=== PATIENT | female | born 1940 | race Caucasian/White ===

== ENCOUNTER 2020-10-20 15:14 | Outpatient (CLI) | payer MEDICARE, OTHER, SELFPAY ==
--- NOTE | ~2020-10-20 | XR_ITS ---
XR ankle LT min 3V DATE: 10/20/2020 16:04 INDICATION: Fall 2 days ago. Left ankle pain and swelling. TECHNIQUE: 4 views COMPARISON: 07/28/2014 left ankle FINDINGS: Moderate plantar and posterior calcaneal enthesopathy and distal Achilles tendon calcificat ion. There is soft tissue swelling of the ankle, greater laterally. No recent fracture or dislocation of the ankle or disruption of the ankle mortise is detected. No per iosteal reaction or bone destruction. IMPRESSION: Left ankle soft tissue swelling, greater laterally; no fracture or dislocation Reviewed, dictated and finalized at location B. EF WORKER
--- NOTE | ~2020-10-20 | XR_ITS ---
EXAMINATION: XR knee LT 3V DATE: 10/20/2020 16:04 INDICATION: Left knee pain. TECHNIQUE: 3 views of left knee on 4 radiographs were obtained. COMPARISON: Left knee radiographs 12/11/2014 FINDINGS: Bone alignment is normal. No fracture. There is severe osteoarthritis of medial and patello femoral compartments and moderate osteoarthritis of lateral compartment. No knee joint effusion. IMPRESSION: 1. Severe left knee osteoarthritis. Reviewed, dictated and finalized at location A. RMATION BROKER
== END 2020-10-20 15:15 | disposition home or self-care (01) ==
LOC: ANHIMG 15:25
PROVIDERS: PCP Family Medicine; Visit Provider Nurse Practitioner Family
DX: M25.572 Pain in left ankle and joints of left foot (principal); M79.89 Other specified soft tissue disorders; M17.12 Unilateral primary osteoarthritis, left knee
CPT/HCPCS: 73562; 73610

== ENCOUNTER 2021-08-10 09:54 | Outpatient (CLI) | payer MEDICARE, OTHER, SELFPAY ==
[2021-08-10 10:38] LABS: Basophils Absolute Auto 0.1 K/mm3 (0.0-0.1); Basophils Percent Auto 0.5 % (0.2-1.2); Eosinophils Absolute Auto 0.1 K/mm3 (0-0.3); Eosinophils Percent Auto 1.1 % (0-4.4); Hematocrit 42.2 % (37.0-47.0); Hemoglobin 13.1 g/dL (12.0-15.0); Immature Granulocyte Absolute 0.11 K/mm3 (0.00-0.031); Immature Granulocyte Percent A 0.9 % (0-0.5); Lymphocytes Absolute Auto 2.62 K/mm3 (0.9-3.2); Mean Corpuscular Hemoglobin 27.1 pg (26-34); Mean Corpuscular Volume 87.2 fl (80-100); Mean Platelet Volume 9.7 fl (7.4-10.4); Monocytes Absolute Auto 0.6 K/mm3 (0.1-0.6); Neutrophils Absolute Auto 8.9 K/mm3 (1.3-6.7); Neutrophils Percent Auto 71.5 % (45.5-73.1); Platelet Count Result 238 k/mm3 (150-375); Red Blood Count 4.84 M/mm3 (4.2-5.4); Red Cell Distribution Width 14.6 % (11.5-14.5); White Blood Count 12.5 K/mm3 (4.5-10.0)
[2021-08-10 10:51] LABS: Anion Gap 10 mmol/L (8-16); Blood Urea Nitrogen 17 mg/dL (7-17); Calcium 9.4 mg/dL (8.4-10.2); Carbon Dioxide 30 mmol/L (22-30); Chloride 100 mmol/L (98-107); Cholesterol 208 mg/dL (0-200); Estimated Glomerular Filt Rate 53; Glucose 199 mg/dL (65-110); HDL Direct 28 mg/dL; Potassium 4.2 mmol/L (3.4-5.0); Sodium 140 mmol/L (137-145); Triglycerides 186 mg/dL (<150)
[2021-08-10 11:01] LABS: LDL Cholesterol Direct 137 mg/dL
[2021-08-10 11:14] LABS: Hemoglobin A1C 7.9 % (<5.7)
[2021-08-10 20:15] LABS: Creatinine Urine 149.9 mg/dL
[2021-08-10 20:19] LABS: MALB Creatinine Ratio 22.5 mg/g (0-30); Microalbumin Urine Random 33.7 mg/L (0-16.7)
== END 2021-08-10 09:55 | disposition home or self-care (01) ==
PROVIDERS: PCP Family Medicine; Visit Provider Family Medicine
DX: D64.9 Anemia, unspecified (principal); E11.9 Type 2 diabetes mellitus without complications; I10 Essential (primary) hypertension; Z13.220 Encounter for screening for lipoid disorders
CPT/HCPCS: 36415; 80048; 80061; 82043; 83036; 84443; 85025

== ENCOUNTER 2021-09-15 10:22 | Outpatient (CLI) | payer MEDICARE, OTHER, SELFPAY ==
--- NOTE | ~2021-09-15 | XR_ITS ---
XR shoulder RT min 2V 09/15/2021 10:56 Indication: Right shoulder pain after fall Procedure: 4 views right shoulder Comparison: 12/20/2009 Findings: No fracture, subluxation or dislocation. There is anatomic alignment. There are mild degene rative changes of the acromioclavicular joint. No significant soft tissue abnormality. Visualized michael g parenchyma is unremarkable. Impression: 1: Mild osteoarthritis of the right acromioclavicular joint. Reviewed, dictated and finalized at location B. TURBINE MECHANIC Impression: 1: Mild osteoarthritis of the right acromioclavicular joint.
== END 2021-09-15 10:23 | disposition home or self-care (01) ==
PROVIDERS: PCP Family Medicine; Visit Provider Nurse Practitioner Family
DX: M19.011 Primary osteoarthritis, right shoulder (principal)
CPT/HCPCS: 73030

== ENCOUNTER 2021-11-22 09:01 | Outpatient (CLI) | payer MEDICARE, OTHER, SELFPAY ==
--- NOTE | ~2021-11-22 | MR_ITS ---
EXAMINATION: MR shoulder RT wo con DATE: 11/22/2021 10:09 INDICATION: Right shoulder pain TECHNIQUE: Magnetic resonance imaging (MRI) of the affected shoulder was performed without intravenou s contrast. Sequences included axial PD-weighted FS FSE, coronal oblique PD-weighted FS FSE, coronal oblique T2-weighted FS FSE, sagittal PD-weighted FS FSE, and sagittal T1-weighted SE. COMPARISON: None. FINDINGS: Coracoacromial arch: The acromion undersurface is minimally curved in morphology (type I-II) with prominent inferiorly dir ected anterior subacromial spur at the acromial attachment of the otherwise normal coracoacromial lig ament. Mild acromioclavicular osteoarthritis. Rotator cuff: Moderate to severe tendinopathy and infraspinatus tendinopathy. Full-thickness tear involving the ent sj supraspinatus and conjoined portion of the supraspinatus and infraspinatus tendons. The tear cont inues posteriorly as a severe articular sided tear involving the majority of the thickness of the mor e posterior infraspinatus tendon. The supraspinatus tear margin is retracted approximately 2 cm from the superior facet footplate. The teres minor tendon is normal. Mild to moderate subscapularis tendin opathy without discrete tear. Normal signal the rotator cuff musculature with no asymmetric muscular atrophy. Biceps tendon, glenoid labrum and glenohumeral cartilage: The long head biceps tendon is not visualized and likely torn and distally retracted below the level of the intertubercular groove. Glenohumeral osteoarthritis with diffuse partial thickness cartilage l oss at the glenoid and at the inferomedial aspect of the humeral head with smooth chondral surface an d without degenerative subchondral changes. The labrum at the posterior to posterior inferior glenoid has been largely replaced by small marginal osteophytes. No evident labral tear. Fluid: Small glenohumeral joint effusion with proportional extension of fluid into the long head biceps tend on sheath and subacromial/subdeltoid bursa, the latter to the full-thickness rotator cuff tear defect . No loose osteochondral bodies. Bones: Mild cephalad subluxation of the humeral head with respect to the glenoid with slight narrowing of th e subacromial space which measures approximately 4 mm between the margins of the humeral head and und ersurface of the acromion. IMPRESSION: 1. Complete full-thickness tear of the distal supraspinatus tendon with transition to a severe articu lar sided tear of the more posterior infraspinatus tendon. 2. Complete tear/avulsion of the the glenoid attachment of the long head biceps tendon which is retra cted distally below the intertubercular groove. 3. Mild glenohumeral and acromioclavicular osteoarthritis. 4. Mild to moderate subscapularis tendinopathy without discrete tear. Reviewed, dictated and finalized at location A. RAL PASSENGER AGENT IMPRESSION: 1. Complete full-thickness tear of the distal supraspinatus tendon with transit ion to a severe articular sided tear of the more posterior infraspinatus tendon . 2. Complete tear/avulsion of the the glenoid attachment of the long head biceps tendon which is retracted distally below the intertubercular groove. 3. Mild glenohumeral and acromioclavicular osteoarthritis. 4. Mild to moderate subscapularis tendinopathy without discrete tear.
== END 2021-11-22 09:02 | disposition home or self-care (01) ==
LOC: ANHIMG 09:05
PROVIDERS: PCP Family Medicine; Visit Provider Physician Assistant Medical
DX: M19.011 Primary osteoarthritis, right shoulder (principal)
CPT/HCPCS: 73221

== ENCOUNTER 2022-03-16 07:51 | Outpatient (CLI) | payer MEDICARE, OTHER, SELFPAY ==
--- NOTE | 2022-03-30 18:49 | WPDSLEEPSTUD ---
Sleep Study Date of Study: 03/16/22 Ordering Provider: Sidney Olguin MD Interpreting Physician: Nadia Boo MD Sleep Study Type: Split Polysomnogram Height: 1.57 m Weight: 113.398 kg Body Mass Index: 45.7 Neck Circumference (inches): 16.5 [place]: 14 Reason for Sleep Study Excessive daytime sleepiness Sleep History Daisy Layne is an 82-year-old female who is tired all the time. She constantly snores and her snoring is constantly loud enough that others complain about it. She does not have trouble sleeping with a cold or wake up gasping for breath at night. She does not have breathing problems at night observed by others. She does not sweat excessively at night or notice her heart pounding or beating irregularly at night. She occasionally falls asleep during the day and occasionally falls asleep involuntarily she does not fall asleep while driving. She does not have loss of muscle tone with strong emotion. She does not have daytime difficulties due to excessive sleepiness. She does not feel paralyzed on waking or falling asleep. She does not feel afraid to go to sleep. She does not have nightmares. She rarely remembers her dreams. She does not have racing thoughts. She does not feel sad or depressed. She occasionally has anxiety. She does not have muscular tension. She does not notice parts of her body jerking and she does not kick at night. She does not have crawling and aching feelings in her legs. She rarely has any kind of leg pain at night. She rarely has morning jaw pain. She does not grind her teeth during sleep. She constantly is bothered by pain during the day, constantly awakened by pain at night, constantly wakes up feeling stiff in the morning with sore achy muscles and pain in the neck and spine. She has fatigue, headaches and palpitations. Normal bedtime is between 9:00 p.m. and 10:00 p.m., taking 20 minutes to fall asleep, typically waking 3 times at night to go to the bathroom. The 1st event happens 3 hours after going to sleep. On average she stays awake for 10 minutes when these events occur. She wakes the morning between 8:00 a.m. and 9:00 a.m.. She may feel refreshed after a short nap. She is not refreshed on waking. Habits: The patient consumes caffeine. 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 Chronic fatigue Chronic gastric ulcer with hemorrhage Chronic GERD Essential (primary) hypertension Hypertension Knee osteoarthritis Microalbuminuria Nasal drainage Right rotator cuff tear Right shoulder pain Spasm of thoracic back muscle Spasm of thoracic back muscle Type 2 diabetes mellitus without complications Surgical History Surgical History History of appendectomy History of cataract extraction History of hysterectomy History of knee replacement Family History Family History Mother Family history of malignant neoplasm of stomach Father Family history of coronary artery disease Hypertension Sibling Heart disease Hypertension Other Family history of cardiovascular disease Social History Social History Second hand tobacco smoke exposure: No Alcohol intake: former Substance use: never Substance use type: does not use Additional occupation/education comments: [employer] Gender identity (if verbalized by the patient): Female Medications Home Medications Medication Instructions Recorded Confirmed Type atenolol 100 mg tablet 100 mg PO DAILY #90 tabs 11/11/19 02/21/22 Rx citalopram 40 mg tablet 40 mg PO DAILY #90 tabs 08/01/21 02/21/22 Rx diazepam 10 mg tablet 10 mg PO
[2022-04-04 21:23] VITALS: BMI 45.7
== END 2022-03-17 06:14 | disposition home or self-care (01) ==
LOC: ANHCSM 08:16
PROVIDERS: PCP Family Medicine; Visit Provider Family Medicine
DX: G47.33 Obstructive sleep apnea (adult) (pediatric) (principal)
CPT/HCPCS: 95811

== ENCOUNTER 2022-05-31 14:05 | Outpatient (CLI) | payer MEDICARE, OTHER, SELFPAY ==
[2022-05-31 14:26] LABS: Hematocrit 39.3 % (37.0-47.0); Hemoglobin 12.4 g/dL (12.0-15.0); Mean Corpuscular HGB Conc 31.6 g/dl (32-36); Mean Corpuscular Hemoglobin 27.3 pg (26-34); Mean Corpuscular Volume 86.4 fl (80-100); Mean Platelet Volume 9.9 fl (7.4-10.4); Platelet Count Result 232 k/mm3 (150-375); Red Blood Count 4.55 M/mm3 (4.2-5.4); Red Cell Distribution Width 14.1 % (11.5-14.5); White Blood Count 12.4 K/mm3 (4.5-10.0)
[2022-05-31 14:40] LABS: Anion Gap 9 mmol/L (8-16); Blood Urea Nitrogen 24 mg/dL (7-17); Calcium 9.4 mg/dL (8.4-10.2); Carbon Dioxide 31 mmol/L (22-30); Chloride 96 mmol/L (98-107); Estimated Glomerular Filt Rate 48; Glucose 156 mg/dL (65-110); Sodium 136 mmol/L (137-145)
[2022-05-31 17:47] LABS: Iron 59 ug/dL (37-170)
[2022-05-31 17:57] LABS: Percent Iron Saturation 17 % (20-50)
== END 2022-05-31 14:06 | disposition home or self-care (01) ==
LOC: ANHLAB 14:08
PROVIDERS: PCP Family Medicine; Visit Provider Family Medicine
DX: D64.9 Anemia, unspecified (principal)
CPT/HCPCS: 36415; 80048; 82728; 83540; 83550; 85027

== ENCOUNTER 2022-09-18 15:28 | Outpatient (CLI) | payer MEDICARE, OTHER, SELFPAY ==
--- NOTE | ~2022-09-18 | US_ITS ---
EXAMINATION:US venous doppler LE BI INDICATION:Soft tissue disorder. Leg swelling. TECHNIQUE: Multiple grayscale, color flow and Doppler images of the right and left lower extremity de ep venous systems were obtained and reviewed. COMPARISON:No prior studies for comparison. FINDINGS: The common femoral, superficial femoral and popliteal veins demonstrate normal respiratory variation, augmentation and compressibility. Color flow is also seen within the posterior tibial, pe roneal, greater saphenous and profunda veins. IMPRESSION: 1: No lower extremity deep venous thrombosis. Reviewed, dictated and finalized at location A. ER PORTABLE MACHINE
== END 2022-09-18 15:29 | disposition home or self-care (01) ==
PROVIDERS: PCP Family Medicine; Visit Provider Family Medicine
DX: M79.89 Other specified soft tissue disorders (principal)
CPT/HCPCS: 93970

== ENCOUNTER 2022-12-21 09:30 | Outpatient (CLI) | payer MEDICARE, OTHER, SELFPAY ==
--- NOTE | 2022-12-21 11:30 | NEURO_ITS ---
Impression: # Complains of pain and inability to stand. Status post multiple right knew surgeries # Right peroneal severe neuropathy. # Needle/EMG abnormal with decreased motor unit potentials in right Quad as well. # No acute neurogenic changes noted. # Clinical correlation recommended. Motor Nerve Conduction Lower Extremities Peroneal Nerve Conduction Velocity (m/sec) Terminal Latency (msec) Response Voltage(mV) Popliteal space-Ankle Ankle Extensor Dig Brevis Popliteal space Ankle Right NR NR NR NR Left 47 4.5 1 1 Tibial Nerve Conduction Velocity (m/sec) Terminal Latency (msec) Response Voltage(mV) Popliteal space-Ankle Ankle-Extensor Dig Brevis Popliteal space Ankle Right 43 5.1 .3 1 Left 48 5.2 1 1 F-waves Peroneal Nerve (ms) Tibial Nerve (ms) Right Dispersed Response 59.5 Left 59.5 58.4 Sensory Nerve Conduction Lower Extremities Sural Nerve Stimulation Terminal Latency (msec) Ankle Response Voltage (uV) Ankle Response Velocity (m/sec) Right NR NR NR Left 3.3 4 48 Superficial Peroneal Nerve Stimulation Terminal Latency (msec) Ankle Response Voltage (uV) Ankle Response Velocity (m/sec) Right NR NR NR Left 3.6 7 44 Left Right Muscles Examined Fibrillation Fasciculation Scarcity Voltage Duration Left Right Left Right Left Right Left Right Left Right X X Ant Tibialis Reduced Decreased >12ms X X Gastroc X X Fibularis Long Reduced Decreased >12ms X X Flex Dig Long X X Ext Dig Brev Reduced Decreased >12ms Abd Hallucis X X Quadriceps Reduced Decreased >12ms Paraspinals MTDD
== END 2022-12-21 09:31 | disposition home or self-care (01) ==
PROVIDERS: PCP Family Medicine; Visit Provider Family Medicine
DX: M79.669 Pain in unspecified lower leg (principal); G62.89 Other specified polyneuropathies
CPT/HCPCS: 95886; 95910

== ENCOUNTER 2023-01-30 15:32 | Outpatient (CLI) | payer MEDICARE, OTHER, SELFPAY ==
--- NOTE | ~2023-01-30 | XR_ITS ---
XR knee LT min 4V DATE: 01/30/2023 16:07 INDICATION: Unilateral primary osteoarthritis of left knee TECHNIQUE: 4 views COMPARISON: None FINDINGS: There is tricompartment osteophytosis, particularly severe at the patellofemoral compartmen t with prominent periarticular spurring and joint space narrowing. There is prominent joint space alejo rowing ([id number]) and moderate periarticular spurring at the medial compartment. No fracture or dislocation or joint effusion, periosteal reaction or bone destruction, radiopaque int ra-articular loose body or, calcinosis is noted. IMPRESSION: Severe patellofemoral and medial compartment osteoarthritis Mild lateral compartment osteoarthritis Reviewed, dictated and finalized at location L.
== END 2023-01-30 15:33 | disposition home or self-care (01) ==
PROVIDERS: PCP Family Medicine; Visit Provider Family Medicine
DX: M17.12 Unilateral primary osteoarthritis, left knee (principal)
CPT/HCPCS: 73564

== ENCOUNTER 2023-08-10 09:54 | Outpatient (CLI) | payer MEDICARE, OTHER, SELFPAY ==
[2023-08-10 10:39] LABS: Basophils Absolute Auto 0.1 K/mm3 (0.0-0.1); Basophils Percent Auto 0.6 % (0.2-1.2); Eosinophils Absolute Auto 0.1 K/mm3 (0-0.3); Eosinophils Percent Auto 0.9 % (0-4.4); Hematocrit 43.2 % (37.0-47.0); Hemoglobin 13.4 g/dL (12.0-15.0); Immature Granulocyte Percent A 0.9 % (0-0.5); Lymphocytes Absolute Auto 2.78 K/mm3 (0.9-3.2); Lymphocytes Percent Auto 24.8 % (18.3-44.2); Mean Corpuscular Volume 90.4 fl (80-100); Mean Platelet Volume 10.2 fl (7.4-10.4); Monocytes Absolute Auto 0.5 K/mm3 (0.1-0.6); Monocytes Percent Auto 4.5 % (2.6-8.5); Neutrophils Absolute Auto 7.7 K/mm3 (1.3-6.7); Neutrophils Percent Auto 68.3 % (45.5-73.1); Platelet Count Result 252 k/mm3 (150-375); Red Blood Count 4.78 M/mm3 (4.2-5.4); Red Cell Distribution Width 14.6 % (11.5-14.5); White Blood Count 11.2 K/mm3 (4.5-10.0)
[2023-08-10 10:51] LABS: Anion Gap 8 mmol/L (8-16); Blood Urea Nitrogen 19 mg/dL (7-17); Calcium 9.6 mg/dL (8.4-10.2); Carbon Dioxide 29 mmol/L (22-30); Chloride 102 mmol/L (98-107); Estimated Glomerular Filt Rate 60; Glucose 173 mg/dL (65-110); Potassium 4.5 mmol/L (3.4-5.0); Sodium 139 mmol/L (137-145)
[2023-08-10 10:56] LABS: Iron 65 ug/dL (37-170)
[2023-08-10 11:07] LABS: Percent Iron Saturation 19 % (20-50)
== END 2023-08-10 09:55 | disposition home or self-care (01) ==
LOC: ANHLAB 09:56
PROVIDERS: PCP Family Medicine; Visit Provider Family Medicine
DX: D64.9 Anemia, unspecified (principal); I10 Essential (primary) hypertension
CPT/HCPCS: 36415; 80048; 82607; 83540; 83550; 84443; 85025

== ENCOUNTER 2024-02-13 10:50 | Outpatient (CLI) | payer MEDICARE, OTHER, SELFPAY | END 2024-02-13 10:51 | disposition home or self-care (01) | LOC: ANHAUDASC 10:51 | PROVIDERS: PCP Family Medicine; Visit Provider Otolaryngology | DX: H93.12 Tinnitus, left ear (principal); H90.42 Sensorineural hearing loss, unilateral, left ear, with unrestricted hearing on the contralateral side; H90.71 Mixed conductive and sensorineural hearing loss, unilateral, right ear, with unrestricted hearing on the contralateral side | CPT/HCPCS: 92557; 92567 ==

== ENCOUNTER 2024-04-03 10:45 | Outpatient (CLI) | payer MEDICARE, OTHER, SELFPAY ==
--- NOTE | ~2024-04-03 | XR_ITS ---
XR knee RT min 4V Ordering provider: ALMAZ Tyson History: . M25.569 - PAIN, FALL X 2 WKS . Comparison: December 06, 2014 FINDINGS: BONES: No acute fracture or dislocation. Soft tissue ossifications seen medially and laterally. JOINT SPACES: Total knee arthroplasty. SOFT TISSUES: Normal. IMPRESSION: No acute osseous abnormality right knee. Total knee arthroplasty. Reviewed, dictated and finalized at location A.
== END 2024-04-03 10:46 | disposition home or self-care (01) ==
PROVIDERS: PCP Family Medicine; Visit Provider Nurse Practitioner Family
DX: M25.561 Pain in right knee (principal)
CPT/HCPCS: 73564

== ENCOUNTER 2024-04-15 12:37 | Outpatient (CLI) | payer MEDICARE, OTHER, SELFPAY ==
[2024-04-15 13:23] LABS: Hematocrit 37.9 % (37.0-47.0); Hemoglobin 11.9 g/dL (12.0-15.0); Mean Corpuscular HGB Conc 31.4 g/dl (32-36); Mean Corpuscular Hemoglobin 28.1 pg (26-34); Mean Corpuscular Volume 89.4 fl (80-100); Mean Platelet Volume 10.3 fl (7.4-10.4); Platelet Count Result 240 k/mm3 (150-375); Red Blood Count 4.24 M/mm3 (4.2-5.4); White Blood Count 9.1 K/mm3 (4.5-10.0)
[2024-04-15 13:38] LABS: Hemoglobin A1C 7.2 % (<5.7)
[2024-04-15 13:39] LABS: Creatinine Urine 105.3 mg/dL
[2024-04-15 13:46] LABS: Microalbumin Urine Random 114.8 mg/L (0-16.7)
[2024-04-15 13:57] LABS: Iron 60 ug/dL (37-170)
[2024-04-15 14:03] LABS: Alanine Aminotransferase 15 U/L (6-35); Albumin Level 4.2 g/dL (3.5-5.1); Alkaline Phosphatase 87 U/L (38-126); Anion Gap 5 mmol/L (4-12); Aspartate Amino Transferase 21 U/L (14-36); Blood Urea Nitrogen 19 mg/dL (7-17); Calcium 9.3 mg/dL (8.4-10.2); Carbon Dioxide 32 mmol/L (22-30); Chloride 102 mmol/L (98-107); Cholesterol 190 mg/dL (0-200); Estimated Glomerular Filt Rate 53; Glucose 152 mg/dL (65-110); HDL Direct 28 mg/dL; Potassium 4.5 mmol/L (3.4-5.0); Sodium 139 mmol/L (137-145); Triglycerides 197 mg/dL (<150)
[2024-04-15 14:12] LABS: Percent Iron Saturation 18 % (20-50)
[2024-04-15 14:15] LABS: LDL Cholesterol Direct 129 mg/dL
== END 2024-04-15 12:38 | disposition home or self-care (01) ==
PROVIDERS: PCP Family Medicine; Visit Provider Family Medicine
DX: D64.9 Anemia, unspecified (principal); I10 Essential (primary) hypertension; R80.9 Proteinuria, unspecified; K21.9 Gastro-esophageal reflux disease without esophagitis; E11.9 Type 2 diabetes mellitus without complications; Z13.220 Encounter for screening for lipoid disorders
CPT/HCPCS: 36415; 80048; 80061; 80076; 82043; 82607; 82728; 83036; 83540; 83550; 84443; 85027

== ENCOUNTER 2024-05-30 12:00 | Outpatient (CLI) | payer MEDICARE, OTHER, SELFPAY ==
--- NOTE | ~2024-05-30 | MR_ITS ---
EXAMINATION: MR lumbar spine wo con DATE: 05/30/2024 13:48 INDICATION: Right foot drop TECHNIQUE: Magnetic resonance imaging (MRI) of the lumbar spine was performed without intravenous con trast. Sequences included sagittal T2-weighted FSE, sagittal T2-weighted FS FSE, sagittal T1-weighted FSE, and axial T2-weighted FSE. COMPARISON: 12/05/2009 FINDINGS: Interval progression of now 20 degrees lumbar dextroscoliosis. Sagittal alignment is normal. Vertebra l body heights are normal. There are multiple T1 hyperintense hemangiomas the largest partially visua lized at T9 with additional hemangiomas at T12-L4. Marrow signal is otherwise unremarkable. Mild to m oderate left-sided predominant disc height loss at L2-L3. Mild disc height loss at T9-T10 through T11 -T12 and with left-sided predominance at L1-L2, L2-L3 and L3-L4. Mild right-sided predominant disc he ight loss at L4-L5. The conus medullaris terminates at L1-L2. There is normal signal in the caudal sp inal cord. Paravertebral soft tissues are unremarkable. The following disc levels are specifically di scussed: T12-L1: Disc is minimally bulging. There is mild right facet joint osteoarthritis. There is no neural foraminal stenosis. There is no central canal stenosis. L1-L2: Disc is mildly bulging. There is mild right and mild to moderate left facet joint osteoarthrit is. There is mild left neural foraminal stenosis. There is mild central canal stenosis. L2-L3: Disc is bulging. There is hypertrophy of the ligamentum flavum. There is mild right and modera te left facet joint osteoarthritis. There is mild to moderate right and moderate left neural foramina l stenosis. There is mild to moderate central canal stenosis. L3-L4: Disc is bulging with annular fissure. There is hypertrophy of the ligamentum flavum. There is mild to moderate right and moderate left facet joint osteoarthritis. There is moderate bilateral neur al foraminal stenosis. There is mild central canal stenosis including of the left and right lateral r ecesses. L4-L5: Disc is bulging with annular fissure. There is hypertrophy of the ligamentum flavum. There is severe bilateral facet joint osteoarthritis. There is moderate left and moderate to severe right justice ral foraminal stenosis. There is mild to moderate central canal stenosis. L5-S1: Disc is minimally bulging. There is moderate left and severe right facet joint osteoarthritis. There is mild bilateral neural foraminal stenosis. There is no central canal stenosis. IMPRESSION: 1. Interval increase in now 20 degrees lumbar dextro scoliosis with mild progression of still moderat e lumbar spondylosis. Reviewed, dictated and finalized at location A. IMPRESSION: 1. Interval increase in now 20 degrees lumbar dextro scoliosis with mild progre ssion of still moderate lumbar spondylosis.
--- NOTE | ~2024-05-30 | MR_ITS ---
EXAMINATION: MR pelvis wo con DATE: 05/30/2024 13:48 INDICATION: Right foot drop TECHNIQUE: Magnetic resonance imaging (MRI) of the pelvis was performed without intravenous contrast. Sequences included axial, sagittal and coronal T1-weighted FSE and T2-weighted FS FSE. COMPARISON: None. FINDINGS: Moderate lumbar spondylosis with T1 hyperintense hemangiomas at L3 and L4. Marrow signal is otherwise unremarkable. Mild bilateral hip and sacroiliac osteoarthritis. No fracture or pathologic marrow rep lacing process. Physiologic amount fluid at the bilateral hip joints. No free fluid in the pelvis or other abnormal fluid collections. There are multiple sigmoid diverticula without adjacent from trace stranding to suggest diverticulitis. Bowels are unremarkable. The uterus is not identified and has kun sage been surgically resected. The lumbosacral plexus and visualized portion of the bilateral proxima l sciatic nerves appear normal with no evident impinging lesions. No asymmetric muscle atrophy or abn ormal signal in the musculature of the lower abdomen, pelvis and upper thighs. No pathologically enla rged pelvic or inguinal lymphadenopathy. IMPRESSION: 1. Moderate lumbar spondylosis. See separate lumbar spine MR report for further detail. 2. Unremarkable lumbosacral plexus and proximal sciatic nerves on both the left and right. 3. Sigmoid diverticulosis. Reviewed, dictated and finalized at location A.
--- NOTE | ~2024-05-30 | MR_ITS ---
EXAMINATION: MR lower leg RT wo con DATE: 05/30/2024 13:48 INDICATION: Lesion of the lateral popliteal nerve of the right lower limb TECHNIQUE: Magnetic resonance imaging (MRI) of the right lower leg was performed without intravenous contrast. Sequences included axial, sagittal and coronal T1-weighted FSE and fluid sensitive FSE STIR . COMPARISON: Right knee radiographs dated 04/03/2024 FINDINGS: There is a revision right total knee arthroplasty with longstem femoral and tibial components. This r esults in significant metallic magnetic field artifact about the right knee which obscures portions o f the popliteal fossa. There is diffuse normal bone marrow signal with no reactive edema, fracture or pathologic marrow replacing process. The visualized portions of the tibial common peroneal nerves ar e normal in caliber with no impinging mass or other impinging lesions along the course of either nerv e. There is diffuse subcutaneous edema throughout both lower legs, right more prominent than left. Th ere is relatively symmetric mild fatty mild throughout the in the bilateral calves as well as mild in creased fluid signal in the in the bilateral gastrocnemius muscles and in the distal peroneus longus and brevis muscles. Visualized portion of the tendons appear normal. IMPRESSION: 1. Visualized portions of the tibial and common peroneal nerves appear normal with no impinging sivan s or lesions. Evaluation moderately limited primarily of the tibial nerve by magnetic field artifact related to the right total knee arthroplasty. Reviewed, dictated and finalized at location A. IMPRESSION: 1. Visualized portions of the tibial and common peroneal nerves appear normal w ith no impinging masses or lesions. Evaluation moderately limited primarily of the tibial nerve by magnetic field artifact related to the right total knee art hroplasty.
== END 2024-05-30 12:01 | disposition home or self-care (01) ==
LOC: ANHIMG 12:02
PROVIDERS: PCP Family Medicine; Visit Provider Student in an Organized Health Care Education/Training Program
DX: G57.31 Lesion of lateral popliteal nerve, right lower limb (principal); M21.371 Foot drop, right foot; K57.30 Diverticulosis of large intestine without perforation or abscess without bleeding; M47.816 Spondylosis without myelopathy or radiculopathy, lumbar region; M41.9 Scoliosis, unspecified
CPT/HCPCS: 72148; 72195; 73718

== ENCOUNTER 2025-05-13 10:18 | Outpatient (CLI) | payer MEDICARE, OTHER, SELFPAY ==
--- OUTSIDE RECORDS SUMMARY | 2025-05-13 10:45 | XMS_ITS | Clinical Summary ---
Author Organization [facility] Address [address] [place] [phone] Phone Care Team Providers Care Final Assembly And Packing Supervisor Name Role Phone Sidney Olguin MD Primary Care Provider [phone] Allergies Active Allergy Reactions Criticality Noted Date Comments Povidone-Iodine Other (See Comments) 06/20/2023 Bad reaction Medications VALACYCLOVIR HCL (VALTREX ORAL) Take by mouth. As needed Active fluticasone propionate (FLONASE) 50 mcg/spray [place], Suspension nasal inhaler Administer 2 Sprays in each nostril daily. Active diazepam (VALIUM) 10 mg Oral tabletIndicatio ns:Depression with anxiety Take 1 Tab by mouth every 8 hours as needed for Anxiety. 90 Tab 0 3 Active losartan-hydroc hlorothiazide (HYZAAR) 100-12.5 mg tablet Take 1 Tablet by mouth daily. Active citalopram (CeleXA) 40 mg tablet 40 mg daily. 4 7 Active aspirin (ECOTRIN EC) 81 mg Tablet, Delayed Release (E.C.) Take 81 mg by mouth daily. Taking ever other day Active omeprazole (PriLOSEC) 20 mg Capsule, Delayed Release(E.C.) Take 20 mg by mouth daily. Active acetaminophen (TYLENOL ARTHRITIS) 650 mg Extended Release tablet Take 650 mg by mouth every 6 hours as needed for Pain. Active gabapentin (NEURONTIN) 300 mg capsule Take 300 mg by mouth daily at bedtime. Active atenoloL (TENORMIN) 50 mg tablet TAKE 1 TABLET(50 MG) BY MOUTH DAILY 90 Tablet 3 4 Active Active Problems Patient Care Coordination No te Formatting of this note migh t be different from the original. Board Member: Dr. Josh Win ( [facility] ) Josh Win MD- [facility] ( [facility]) Problem Noted Date Diagnosed Date SVT (supraventricular tachycardia) 05/05/2012 Hypertension Palpitations Overview (01/19/2012): Diagnosed with SVT in the past Allergic rhinitis Depression with anxiety Overview (01/19/2012): On wellbutrin and paxil, while caring for mother several years ago. On paxil now, but questionable if its needed. Encounters Date Type Department Care Team Description 04/29/2025 External Device Data [facility] ABSTRACTION Provider, Abstract 04/29/2025 External Device Data [facility] ABSTRACTION Provider, Abstract 04/29/2025 External Device Data [facility] ABSTRACTION Provider, Abstract 04/28/2025 External Device Data [facility] ABSTRACTION Provider, Abstract 04/01/2025 External Device Data [facility] ABSTRACTION Provider, Abstract 03/31/2025 External Device Data STL ABSTRACTION Provider, Abstract 03/05/2025 External Device Data [facility] ABSTRACTION Provider, Abstract 03/03/2025 External Device Data STL ABSTRACTION Provider, Abstract from Last 3 Months Immunizations Immunization Administration Dates Next Due Influenza Seasonal Unspecified Formulation IM Zoster Vaccine Live SQ 08/15/2010 Family History Medical History Relation Name Comments Heart Disease Father Heart Surgery Father Cancer Other Stomach Relation Name Status Comments Father (Age 61) Mother (Age 91) age relate d Other Social History Tobacco Use Types Packs/Day Years Used Date Smoking Tobacco: Never Smokeless Tobacco: Never Tobacco Cessation:Counseling Given: Not Answered Alcohol Use Standard Drinks/Week Comments Yes 0 (1 standard drink = 0.6 oz pur e alcohol) Social Comments No Sex and Gender Information Value Date Recorded Sex Assigned at Not on file 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 Gender Identity Not on file Sexual Orientation Not on file 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 on file Not on file Not on file Last Filed Vital Signs Vital Sign Reading Time Taken Comments Blood Pressure 140/72 06/26/2024 9:51 AM CDT Pulse 79 06/26/2024 9:51 AM CDT Temperature 36.3 C (97.3 F) 05/27/2020 1:19 PM CDT Respiratory Rate - - Oxygen Saturation 91% 06/26/2024 9:51 AM CDT Inhaled Oxygen Concentration - - Weight 121.1 kg (267 lb) 06/26/2024 9:51 AM CDT Height 154.9 cm (5' 1) 06/26/2024 9:51 AM CDT Body Mass Index 50.45 06/26/2024 9:51 AM CDT Plan of Treatment Upcoming Encounters Date Type Department Care Team (Late st Contact Info) Description 07/02/2025 9:00 AM CDT Office Visit [facility] - [facility] [address] [facility] [address] [place] [address] Josh Win MD [address] [facility] [address] [place] [address] Health Maintenance Due Date Last Done Comments DTAP/TDAP/TD VACCINES (1 - Tdap) 1959 PNEUMOCOCCAL VACCINE 50+ YEA RS (1 of 1 - PCV) 02/09/1992 ZOSTER VACCINE (2 of 3) 10/10/2010 08/15/2010 OSTEOPOROSIS SCREENING 07/15/2014 07/15/2009 RSV VACCINE (60+ or ) (1 - 1-dose 75+ series) 2017 INFLUENZA VACCINE (#1) 2025 07/15/2012 COLORECTAL SCREENING Discontinued 06/12/2018, 10/15/19 05 Colorectal Cancer Screening Discontinued FIT-DNA Q 3 years Discontinued FIT/FOBT Q 1 year Discontinued Flex Sig/CT Colonography Q 5 years Discontinued Insurance MEDICARE PART A AND B [employer] [place] [employer] Care Teams Final Assembly And Packing Supervisor Relationship Specialty Start Date End Date Sidney Olguin MD [address] [place] [address] PCP - General Family Practice 09/17/14
--- OUTSIDE RECORDS SUMMARY | 2025-05-13 10:45 | XMS_ITS | Referral Summary ---
Author Organization [facility] Address [address] [place] [id number] Care Team Providers Care Access Nurse Name Role Phone Sidney Olguin MD Primary Care Provider [phone] Allergies Active Allergy Reactions Criticality Noted Date Comments Iodine Rash Medium 04/25/2019 Medications omeprazole (PriLOSEC) 40 mg capsule Take 40 mg by mouth daily Active diazePAM (VALIUM) 10 mg tablet Take 10 mg by mouth every 6 (six) hours as needed for anxiety Active FLUTICASONE FUROATE NASL Administer into affected nostril(s) Active citalopram (CeleXA) 40 mg tablet Take 40 mg by mouth daily Active atenolol (TENORMIN) 50 mg tablet Take 50 mg by mouth daily Active losartan-hydroC HLOROthiazide (HYZAAR) 100-12.5 mg per tablet Take 1 tablet by mouth daily Active Active Problems No known active problems Social History Tobacco Use Types Packs/Day Years Used Date Smoking Tobacco: Never Smokeless Tobacco: Never Alcohol Use Standard Drinks/Week Comments Never 0 (1 standard drink = 0.6 oz pur e alcohol) AUDIT-C Answer Date Recorded Frequency of Alcohol Consumption Never 04/25/2019 Average Number of Drinks Not on file Frequency of Binge Drinking Not on file 04/14 Personal Safety Answer Date Recorded Getting School Help Needed Not on file 12/14 Comments Unknown Sex and Gender Information Value Date Recorded Sex Assigned at Not on file Legal Sex Female 1:34 PM CDT Gender Identity Not on file Sexual Orientation Not on file Last Filed Vital Signs Vital Sign Reading Time Taken Comments Blood Pressure - - Pulse - - Temperature - - Respiratory Rate - - Oxygen Saturation - - Inhaled Oxygen Concentration - - Weight 120.7 kg (266 lb 0.1 oz) 08/08/2017 2:03 PM CDT Height 157.5 cm (5' 2) 08/08/2017 2:03 PM CDT Body Mass Index 48.65 08/08/2017 2:03 PM CDT Plan of Treatment Not on file Insurance MEDICARE [facility] MEDICARE [facility] [place] [address] Care Teams Access Nurse Relationship Specialty Start Date End Date Sidney Olguin MD PCP - General 05/22/17
--- OUTSIDE RECORDS SUMMARY | 2025-05-13 10:45 | XMS_ITS | Clinical Summary ---
Author Organization [facility] Address [address] [place] [phone] Care Team Providers Care Undertaker Helper Name Role Phone Sidney Olguin MD Primary Care Provider [phone] Allergies Active Allergy Reactions Criticality Noted Date [...] Active Active Problems No known active problems Surgical History Surgery Date Site/Laterality Comments KNEE SURGERY Medical History Medical History Date Comments Hypertension Anxiety Family History Medical History Relation Name Comments Heart disease Other 1 Family history of cardiac disorder - (Added by TW Conv) Hypertension Other 2 Family history of hypertension - (Added by TW Conv) Cancer Other 3 Family history of malignant neoplasm - (Added by TW Conv) Relation Name Status Comments Other 1 Other 2 Other 3 Social History Tobacco Use Types Packs/Day Years Used Date Smoking Tobacco: Never Smokeless Tobacco: Never Alcohol Use Standard Drinks/Week Comments Never 0 (1 standard drink = 0.6 oz pur e alcohol) AUDIT-C Answer Date Recorded Frequency of Alcohol Consumption Never 04/25/2019 Average Number of Drinks Not on file 019 Frequency of Binge Drinking Not on file 04/14 Personal Safety Answer Date Recorded Getting School Help Needed Not on file 12/14 Comments Unknown Sex and Gender Information Value Date Recorded Sex Assigned at Not on file Legal Sex Female 1:34 PM CDT Gender Identity Not on file Sexual Orientation Not on file Obstetrics History Last Filed Vital Signs Vital Sign Reading [...] 08/08/2017 2:03 PM CDT Plan of Treatment Health Maintenance Due Date Last Done Comments Depression Screening 1942 Fall Risk Assessment 1940 Osteoporosis Screening-Bone Density Scan 1940 Hepatitis B Screening 02/09/1960 Well Visit 65+ 2007 Zoster Vaccine (2 of 3) 10/10/2010 08/15/2010 Pneumococcal vaccine 65+ (2 of 2 - PPSV23) 08/10/2018 08/10/2017 Covid-19 Vaccine (3 - 2023-2 5 season) 2024 01/06/2021, 12/16/2020 Influenza Vaccine (#1) 2025 , 07/16/2018, 08/10/2017, Additional history exists DTaP/Tdap/Td Vaccine (2 - Td or Tdap) 04/15/2028 04/15/2018 Insurance MEDICARE [employer]ICARE [employer] Care Teams Undertaker Helper Relationship Specialty Start Date End Date Sidney Olguin MD PCP - General 05/22/17
--- OUTSIDE RECORDS SUMMARY | 2025-05-13 10:45 | XMS_ITS | Clinical Summary ---
Author Organization [facility] Address [address] [place] [address] Care Team Providers Care Quality Control Head Name Role Phone Sidney Olguin MD Primary Care Provider [phone] Source Comments [facility],non-owned Affiliates and Associated Physician Practices is amultiple site organization consisting of ambulatory clinics and hospital sitesin [place], [place], [place] and [place]. This disclosure is being madepursuant to the Care Everywhere program and may not contain all information available regarding this patient. 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 Gender Identity Not on file Sexual Orientation Not on file Plan of Treatment Health Maintenance Due Date Last Done Comments BONE DENSITY TESTING 1942 DTAP/TDAP/TD VACCINES (1 - Tdap) 1961 PNEUMOCOCCAL VACCINE 50+ (1 of 1 - PCV) 02/09/1992 ZOSTER VACCINE (1 of 2) 02/09/1992 Respiratory Syncytial Virus (RSV) Vaccine Pt: or over 60 yrs (1 - 1-dose 75+ series) 2017 COVID-19 VACCINE ( - 2023-2 5 season) 2024 DEPRESSION SCREENING 10/15/2024 INFLUENZA VACCINE (#1) 2025 HEPATITIS B VACCINE Aged Out No longe r eligible based on patient's age to complete this topic HIB VACCINE Aged Out No longer eligi ble based on patient's age to complete this topic HPV VACCINE Aged Out No longer eligi ble based on patient's age to complete this topic MENINGOCOCCAL (Group B) VACC INE SHARED DECISION-MAKING Aged Out No longer eligibl e based on patient's age to complete this topic MENINGOCOCCAL GROUPS A/C/Y/W VACCINE Aged Out No longer eligible b ased on patient's age to complete this topic Insurance MEDICARE Care Teams Quality Control Head Relationship Specialty Start Date End Date Sidney Olguin MD [address] [place] [address] PCP - General 06/14/18
--- OUTSIDE RECORDS SUMMARY | 2025-05-13 10:45 | XMS_ITS | Clinical Summary ---
Author Organization [facility] Address [address] [place] [address] Care Team Providers Care Flow Coordinator Name Role Phone Sidney Olguin MD Primary Care Provider [phone] Social History Tobacco Use Types Packs/Day Years Used Date Smoking Tobacco: Never Assessed Comments Unknown Sex and Gender Information Value Date Recorded Sex Assigned at Not on file Legal Sex Female 7:11 PM CDT Gender Identity Not on file Sexual Orientation Not on file Plan of Treatment Health Maintenance Due Date Last Done Comments DTaP, Tdap and Td Vaccines ( 1 - Tdap) 1961 Pneumococcal Vaccine: 50+ Ye ars (1 of 1 - PCV) 02/09/1992 Zoster Vaccines (1 of 2) 02/09/1992 Annual Medicare Wellness Visit 2007 Dexa Scan (General) 2007 RSV Immunization or 60+ Years (1 - 1-dose 75+ series) 2017 COVID-19 Vaccine ( - 2023-2 5 season) 2024 PHQ-2 (Physician Minto) 10/15/2024 Meningococcal B Vaccine Aged Out No l onger eligible based on patient's age to complete this topic Meningococcal Vaccine Aged Out No mark martha eligible based on patient's age to complete this topic RSV Immunizations Under 20 Months Aged Out No longer eligible based on patient's age to complete this topic Insurance MEDICARE [facility] Care Teams Flow Coordinator Relationship Specialty Start Date End Date Sidney Olguin MD [address] [place] [address] PCP - General FAMILY PRACTICE 02/09/23
[2025-05-13 11:13] LABS: Hematocrit 39.6 % (37.0-47.0); Hemoglobin 12.5 g/dL (12.0-15.0); Mean Corpuscular HGB Conc 31.6 g/dl (32-36); Mean Corpuscular Hemoglobin 28.8 pg (26-34); Mean Corpuscular Volume 91.2 fl (80-100); Platelet Count Result 277 k/mm3 (150-375); Red Blood Count 4.34 M/mm3 (4.2-5.4); White Blood Count 10.8 K/mm3 (4.5-10.0)
[2025-05-13 11:18] LABS: MALB Creatinine Ratio 14.9 mg/g (0-30)
[2025-05-13 11:42] LABS: Alanine Aminotransferase 15 U/L (6-35); Albumin Level 4.0 g/dL (3.5-5.1); Alkaline Phosphatase 108 U/L (38-126); Anion Gap 9 mmol/L (4-12); Aspartate Amino Transferase 22 U/L (14-36); Bilirubin,Total 0.7 mg/dL (0.2-1.3); Blood Urea Nitrogen 22 mg/dL (7-17); Calcium 9.5 mg/dL (8.4-10.2); Carbon Dioxide 28 mmol/L (22-30); Chloride 100 mmol/L (98-107); Cholesterol 215 mg/dL (0-200); Estimated Glomerular Filt Rate 48; Glucose 201 mg/dL (65-110); HDL Direct 23 mg/dL; Potassium 3.9 mmol/L (3.4-5.0); Sodium 137 mmol/L (137-145); Total Protein 8.1 g/dL (6.3-8.2); Triglycerides 224 mg/dL (<150)
[2025-05-13 12:17] LABS: Thyroid Stimulating Hormone 1.950 uIU/mL (0.465-4.680)
== END 2025-05-13 10:19 | disposition home or self-care (01) ==
PROVIDERS: PCP Family Medicine; Visit Provider Nurse Practitioner Family
DX: E11.29 Type 2 diabetes mellitus with other diabetic kidney complication (principal); I10 Essential (primary) hypertension; R80.9 Proteinuria, unspecified; E66.01 Morbid (severe) obesity due to excess calories; Z68.42 Body mass index [BMI] 45.0-49.9, adult; D64.9 Anemia, unspecified; G62.9 Polyneuropathy, unspecified
CPT/HCPCS: 36415; 80053; 80061; 82043; 82306; 84443; 85027